=== PATIENT | female | born 2000 | race Two or more races ===

== ENCOUNTER → 2023-08-25 15:35 | Outpatient (CLI) | payer OTHER | END | disposition home or self-care (01) | LOC: PRENATAL 15:35 | PROVIDERS: ATTEND Obstetrics & Gynecology Maternal & Fetal Medicine | DX: O35.9XX0 Maternal care for (suspected) fetal abnormality and damage, unspecified, not applicable or unspecified (principal); O35.3XX0 Maternal care for (suspected) damage to fetus from viral disease in mother, not applicable or unspecified; O44.00 Complete placenta previa NOS or without hemorrhage, unspecified trimester; Z3A.20 20 weeks gestation of pregnancy ==